=== PATIENT | female | born 1945 | race Caucasian/White ===

== ENCOUNTER 2021-08-29 08:00 | Inpatient (IN) ==
[2021-08-29 09:51] LABS: Basophils # 0.1 10*3/uL (0.0-0.2); Basophils % 0.5 % (0.0-0.8); Eosinophils # 0.2 10*3/uL (0.0-0.87); Eosinophils % 1.9 % (0.00-10.9); Hematocrit 36.4 VOL% (35.7-47.0); Hemoglobin 11.3 GM/DL (12.0-16.0); Immature Granulocytes % 0.4 %; Immature Granulocytes Absolute 0.04 #; Lymphocytes # 2.7 10*3/uL (1.4-4.0); Mean Corpuscular Volume 94.8 FL (87-102); Mean Platelet Volume 10.6 FL (9.6-12.0); Monocytes # 0.8 10*3/uL (0.11-0.8); Monocytes % 7.2 % (1.7-12.7); Platelet Count 187 T/CUMM (130-400); Red Blood Count 3.84 MC/CUMM (3.8-5.5); Red Cell Distribution Width 14.8 % (9.3-17.3); White Blood Count 10.9 T/CUMM (4-12)
[2021-08-29 10:04] LABS: RBC,Urine 1 /HPF (0-4); Squamous Epithelial Cell,Urine Occasional /HPF (0-10); Urine Appearance Clear (Clear); Urine Color Light Yellow (Yellow); Urine Specific Gravity 1.015 (1.001-1.035)
[2021-08-29 10:05] LABS: Bilirubin,Urine Negative (Negative); Blood, Urine Negative (Negative); Glucose,Urine (UA) Negative (Negative); Ketones,Urine Negative (Negative); Nitrite,Urine Negative (Negative); Protein,Urine Negative (Negative); Urine Urobilinogen 0.2 eU/dL (<2.0)
[2021-08-29 10:18] LABS: Albumin 3.3 G/DL (3.4-5.0); Bilirubin,Total 0.5 MG/DL (0.20-1.00); Calcium 8.9 MG/DL (8.5-10.1); Osmolality,Calculated 277.4 MOS/KG (273-304); Potassium 4.1 MMOL/L (3.5-5.1); Total Protein 6.4 G/DL (6.4-8.2)
[2021-08-29] MEDS ORDERED: PIPERACILLIN/TAZOBACTAM 3,375 MG in SODIUM CHLORIDE 0.9% 100 ML IV STA (11:05)
[2021-08-29] MEDS ORDERED: ONDANSETRON 4 MG/2 ML VIAL IV PRN (11:37)
[2021-08-29] MEDS ORDERED: LACTULOSE 20 GM/30 ML UDCUP PO PRN (11:37)
[2021-08-29] MEDS ORDERED: GLUCAGON 1 MG VIAL IM PRN (11:37)
[2021-08-29] MEDS ORDERED: hydrALAZINE 20 MG/1 ML VIAL IV PRN (11:37)
[2021-08-29] MEDS ORDERED: DOCUSATE SODIUM 100 MG CAPSULE PO PRN (11:37)
[2021-08-29] MEDS ORDERED: SIMETHICONE CHEW 125 MG TABLET PO PRN (11:37)
[2021-08-29] MEDS ORDERED: DEXTROSE 10% 250 ML BAG IV PRN (11:37)
[2021-08-29] MEDS ORDERED: ALBUTEROL/IPRATROPIUM 3 ML NEB RESP TX ONE (12:12)
[2021-08-29] MEDS: ALBUTEROL/IPRATROPIUM 3 ML NEB RESP TX SCH ×3 (12:19→19:22)
[2021-08-29] MEDS: ENOXAPARIN 40 MG/0.4 ML SYRINGE SUBCUT SCH (12:28)
[2021-08-29] MEDS: cefTRIAXone 1,000 MG in SODIUM CHLORIDE 0.9% 100 ML IV SCH (12:28)
[2021-08-29] MEDS: AZITHROMYCIN INJ 500 MG in SODIUM CHLORIDE 0.9% 250 ML IV SCH (13:35)
[2021-08-29 13:53] LABS: Thyroid Stimulating Hormone 2.07 uIU/ml (0.358-3.74)
[2021-08-29] MEDS: INSULIN LISPRO 100 UNIT/ML SUBCUT SCH ×2 (16:37→20:40)
[2021-08-30] MEDS: ALBUTEROL/IPRATROPIUM 3 ML NEB RESP TX SCH ×4 (00:59→19:32)
[2021-08-30 06:20] LABS: Basophils % 0.5 % (0.0-0.8); Eosinophils # 0.2 10*3/uL (0.0-0.87); Eosinophils % 3.1 % (0.00-10.9); Hemoglobin 10.7 GM/DL (12.0-16.0); Immature Granulocytes % 0.6 %; Immature Granulocytes Absolute 0.04 #; Lymphocytes # 2.4 10*3/uL (1.4-4.0); Lymphocytes % 37.3 % (21.3-54.2); Mean Corpuscular HGB Conc 30.6 GM/DL (32-36); Mean Corpuscular Volume 94.3 FL (87-102); Mean Platelet Volume 10.6 FL (9.6-12.0); Monocytes # 0.6 10*3/uL (0.11-0.8); Monocytes % 9.8 % (1.7-12.7); Neutrophils % 48.7 % (38.7-73.9); Platelet Count 159 T/CUMM (130-400); Red Blood Count 3.71 MC/CUMM (3.8-5.5); Red Cell Distribution Width 14.6 % (9.3-17.3); White Blood Count 6.4 T/CUMM (4-12)
[2021-08-30 06:38] LABS: Albumin 2.7 G/DL (3.4-5.0); Bilirubin,Total 0.4 MG/DL (0.20-1.00); Calcium 8.7 MG/DL (8.5-10.1); Osmolality,Calculated 281.1 MOS/KG (273-304); Potassium 3.9 MMOL/L (3.5-5.1); Risk Ratio 6.38; Total Protein 6.1 G/DL (6.4-8.2)
[2021-08-30] MEDS: PANTOPRAZOLE 40 MG TABLET PO SCH (09:39)
[2021-08-30] MEDS: cefTRIAXone 1,000 MG in SODIUM CHLORIDE 0.9% 100 ML IV SCH (09:40)
[2021-08-30] MEDS: ENOXAPARIN 40 MG/0.4 ML SYRINGE SUBCUT SCH (09:40)
[2021-08-30] MEDS: INSULIN LISPRO 100 UNIT/ML SUBCUT SCH ×4 (09:41→21:00)
[2021-08-30] MEDS ORDERED: PROMETHAZINE 25 MG TABLET PO PRN (11:19)
[2021-08-30] MEDS: DILTIAZEM CD 120 MG CAPSULE PO SCH (13:29)
[2021-08-30] MEDS: CYCLOBENZAPRINE 10 MG TABLET PO PRN ×2 (13:29→21:07)
[2021-08-30] MEDS: AZITHROMYCIN INJ 500 MG in SODIUM CHLORIDE 0.9% 250 ML IV SCH (13:30)
[2021-08-30] MEDS: TAMOXIFEN 10 MG TABLET PO SCH (13:30)
[2021-08-30] MEDS: guaiFENesin/DM ER 600-30 MG TABLET PO PRN (17:44)
[2021-08-30] MEDS: ACETAMINOPHEN 325 MG TABLET PO PRN (17:44)
[2021-08-30] MEDS: metFORMIN 500 MG TABLET PO SCH (21:08)
[2021-08-31] MEDS: ALBUTEROL/IPRATROPIUM 3 ML NEB RESP TX SCH ×4 (00:23→19:20)
[2021-08-31] MEDS ORDERED: MELATONIN 3 MG TABLET PO ONE (01:25)
[2021-08-31 05:44] LABS: Basophils % 0.4 % (0.0-0.8); Eosinophils # 0.3 10*3/uL (0.0-0.87); Hematocrit 33.2 VOL% (35.7-47.0); Hemoglobin 10.4 GM/DL (12.0-16.0); Immature Granulocytes % 0.1 %; Immature Granulocytes Absolute 0.01 #; Lymphocytes # 2.3 10*3/uL (1.4-4.0); Lymphocytes % 33.5 % (21.3-54.2); Mean Corpuscular HGB Conc 31.3 GM/DL (32-36); Mean Corpuscular Volume 94.6 FL (87-102); Mean Platelet Volume 10.9 FL (9.6-12.0); Monocytes # 0.6 10*3/uL (0.11-0.8); Monocytes % 8.4 % (1.7-12.7); Neutrophils % 53.6 % (38.7-73.9); Platelet Count 155 T/CUMM (130-400); Red Blood Count 3.51 MC/CUMM (3.8-5.5); Red Cell Distribution Width 14.5 % (9.3-17.3); White Blood Count 6.8 T/CUMM (4-12)
[2021-08-31 05:58] LABS: Albumin 2.6 G/DL (3.4-5.0); Bilirubin,Total 0.4 MG/DL (0.20-1.00); Calcium 8.4 MG/DL (8.5-10.1); Potassium 3.7 MMOL/L (3.5-5.1); Total Protein 6.2 G/DL (6.4-8.2)
[2021-08-31] MEDS: INSULIN LISPRO 100 UNIT/ML SUBCUT SCH ×4 (07:32→21:07)
[2021-08-31] MEDS: TAMOXIFEN 10 MG TABLET PO SCH (08:52)
[2021-08-31] MEDS: CYCLOBENZAPRINE 10 MG TABLET PO PRN ×2 (08:52→21:03)
[2021-08-31] MEDS: MAGNESIUM OXIDE 400 MG TABLET PO SCH (08:53)
[2021-08-31] MEDS: ASPIRIN EC 81 MG TABLET PO SCH (08:53)
[2021-08-31] MEDS: PANTOPRAZOLE 40 MG TABLET PO SCH (08:53)
[2021-08-31] MEDS: DILTIAZEM CD 120 MG CAPSULE PO SCH (08:53)
[2021-08-31] MEDS: metFORMIN 500 MG TABLET PO SCH ×2 (08:53→21:03)
[2021-08-31] MEDS: ENOXAPARIN 40 MG/0.4 ML SYRINGE SUBCUT SCH (08:54)
[2021-08-31] MEDS: cefTRIAXone 1,000 MG in SODIUM CHLORIDE 0.9% 100 ML IV SCH (08:56)
[2021-08-31] MEDS: AZITHROMYCIN 250 MG TABLET PO SCH (08:56)
[2021-08-31] MEDS: guaiFENesin/DM ER 600-30 MG TABLET PO PRN (13:31)
[2021-08-31] MEDS: ACETAMINOPHEN 325 MG TABLET PO PRN ×2 (13:31→22:52)
[2021-08-31] MEDS ORDERED: MELATONIN 3 MG TABLET PO PRN (19:22)
[2021-08-31] MEDS: FLUTICASONE 50 MCG NASAL SPRAY 16 GM BOTTLE BOTH NARES SCH (21:10)
[2021-09-01] MEDS ORDERED: MELATONIN 3 MG TABLET PO ONE (00:56)
[2021-09-01] MEDS: ALBUTEROL/IPRATROPIUM 3 ML NEB RESP TX SCH ×3 (01:03→13:00)
[2021-09-01 05:30] LABS: Basophils % 0.4 % (0.0-0.8); Eosinophils # 0.3 10*3/uL (0.0-0.87); Eosinophils % 4.2 % (0.00-10.9); Hematocrit 33.9 VOL% (35.7-47.0); Hemoglobin 10.5 GM/DL (12.0-16.0); Immature Granulocytes % 0.4 %; Immature Granulocytes Absolute 0.03 #; Lymphocytes # 2.5 10*3/uL (1.4-4.0); Lymphocytes % 32.2 % (21.3-54.2); Mean Corpuscular Volume 93.4 FL (87-102); Monocytes # 0.7 10*3/uL (0.11-0.8); Monocytes % 8.8 % (1.7-12.7); Platelet Count 178 T/CUMM (130-400); Red Blood Count 3.63 MC/CUMM (3.8-5.5); Red Cell Distribution Width 14.4 % (9.3-17.3); White Blood Count 7.7 T/CUMM (4-12)
[2021-09-01 05:56] LABS: Albumin 2.8 G/DL (3.4-5.0); Bilirubin,Total 0.4 MG/DL (0.20-1.00); Calcium 8.8 MG/DL (8.5-10.1); Osmolality,Calculated 281.1 MOS/KG (273-304); Potassium 3.6 MMOL/L (3.5-5.1); Total Protein 6.5 G/DL (6.4-8.2)
[2021-09-01] MEDS: metFORMIN 500 MG TABLET PO SCH (08:17)
[2021-09-01] MEDS: MAGNESIUM OXIDE 400 MG TABLET PO SCH (08:17)
[2021-09-01] MEDS: AZITHROMYCIN 250 MG TABLET PO SCH (08:17)
[2021-09-01] MEDS: PANTOPRAZOLE 40 MG TABLET PO SCH (08:18)
[2021-09-01] MEDS: cefTRIAXone 1,000 MG in SODIUM CHLORIDE 0.9% 100 ML IV SCH (08:18)
[2021-09-01] MEDS: ASPIRIN EC 81 MG TABLET PO SCH (08:18)
[2021-09-01] MEDS: ENOXAPARIN 40 MG/0.4 ML SYRINGE SUBCUT SCH (08:18)
[2021-09-01] MEDS: TAMOXIFEN 10 MG TABLET PO SCH (08:18)
[2021-09-01] MEDS: FLUTICASONE 50 MCG NASAL SPRAY 16 GM BOTTLE BOTH NARES SCH (08:19)
[2021-09-01] MEDS: DILTIAZEM CD 120 MG CAPSULE PO SCH (08:19)
[2021-09-01] MEDS: INSULIN LISPRO 100 UNIT/ML SUBCUT SCH ×2 (08:52→11:21)
[2021-09-01] MEDS: CYCLOBENZAPRINE 10 MG TABLET PO PRN (11:06)
[2021-09-01 11:36] VITALS: BP 138/58
== END 2021-09-01 15:50 | disposition home health service (06) | DRG 195 ==
LOC: N.ED 08:00 → N.EDINP 11:43 → SUATTDRO 11:43 → N.5E 13:45
PROVIDERS: ADMIT Internal Medicine; ATTEND Family Medicine